=== PATIENT | male | born 1955 | race Caucasian/White ===

== ENCOUNTER 2016-11-10 12:25 | Emergency (ER) | payer MEDICARE, OTHER ==
[2016-11-10 13:36] LABS: HEMOGLOBIN 15.6 gm/dl (14.0-17.5); RED BLOOD COUNT 4.77 M/UL (4.20-5.50); WHITE BLOOD COUNT 9.6 K/UL (4.5-11.0)
[2016-11-10 13:55] LABS: BUN/CREATININE RATIO 13 (0-10)
== END 2016-11-10 18:50 | disposition home or self-care (01) ==
LOC: ER1 12:25
PROVIDERS: Emergency Medicine
DX: R10.84 Generalized abdominal pain (principal); R11.10 Vomiting, unspecified; F79 Unspecified intellectual disabilities; Z79.82 Long term (current) use of aspirin; Z79.899 Other long term (current) drug therapy
CPT/HCPCS: 36415; 71010; 80053; 81001; 83690; 84484; 85025; 93005; 96361; 96374; 99284; J2405; J7030; J7050; Q9962

== ENCOUNTER 2020-12-13 16:13 | Emergency (ER) | payer MEDICARE, OTHER ==
[~2020-12-13 16:13] MED LIST: BRIVIACT PO; CARAFATE1 GM PO; CLARITIN10 MG PO; ECOTRIN81 MG PO; FLOMAX0.4 MG PO; HYDROCHLOROTH12.5 MG PO; IMDUR ER TAB 3030 MG PO; LORCET HD 10-31 EACH PO; MAGOX 400400 MG PO; MOBIC7.5 MG PO; NEURONTIN 400400 MG PO; PROTONIX40 MG PO; SEROQUEL100 MG PO; VITAMIN D250000 UNIT PO; ZOCOR40 MG PO
[2020-12-13 17:25] LABS: HEMOGLOBIN 14.7 gm/dl (14.0-17.5); RED BLOOD COUNT 4.3 M/UL (4.20-5.50); WHITE BLOOD COUNT 11.4 K/UL (4.5-11.0)
[2020-12-13 18:22] LABS: BUN/CREATININE RATIO 16 (0-10)
== END 2020-12-13 18:55 | disposition home or self-care (01) ==
LOC: ER1 16:13
PROVIDERS: Preventive Medicine Occupational Medicine
DX: R06.6 Hiccough (principal); R00.1 Bradycardia, unspecified; I25.10 Atherosclerotic heart disease of native coronary artery without angina pectoris; Z20.822 Contact with and (suspected) exposure to COVID-19; F17.210 Nicotine dependence, cigarettes, uncomplicated
CPT/HCPCS: 0240U; 70450; 71045; 80053; 82550; 82553; 83690; 83874; 83880; 84484; 85025; 85652; 86140; 99284; J7030

== ENCOUNTER → 2021-01-14 | Outpatient (CLI) | payer MEDICARE, OTHER | LOC: KOH-I 11:30 | DX: Z96.89 Presence of other specified functional implants (principal); Z86.69 Personal history of other diseases of the nervous system and sense organs | CPT/HCPCS: 70490 ==

== ENCOUNTER → 2021-02-07 | Outpatient (CLI) | payer MEDICARE, OTHER | LOC: KOH-I 13:00 → EMI 13:14 → KOH-I 13:14 | DX: R53.1 Weakness (principal); G93.89 Other specified disorders of brain | CPT/HCPCS: 70551 ==

== ENCOUNTER → 2022-03-03 | Outpatient (CLI) | payer MEDICARE, OTHER | LOC: RAD 14:58 | DX: K59.00 Constipation, unspecified (principal) | CPT/HCPCS: 74022 ==